=== PATIENT | male | born 1950 | race Caucasian/White ===

== ENCOUNTER 2019-03-21 17:27 | Inpatient (IN) | payer MEDICARE, OTHER ==
[~2019-03-21] VITALS: Ht 182.9 cm; Wt 66.4 kg
[2019-03-21] MEDS ORDERED: IV NORMAL SALINE 1,000ML 1,000 ML IV ONE (17:45)
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
--- NOTE | 2019-03-21 18:13 | RAD ---
AP chest. HISTORY: High white count AP view was taken of the chest. There is a bony destructive process in the right humerus with a pathologic fracture. Patient's taken a poor inspiration. There is atelectasis in both lung bases. Left PICC line is in good position. There is bowel distention in the abdomen. There is possible free air under the right diaphragm. IMPRESSION: 1. Bony destructive process with pathologic fracture right humerus. 2. Poor inspiration with basilar atelectasis. 3. Bowel distention. 4. Possible free air under the right diaphragm. Emergency room physician was called and notified the findings at 6:09 PM FOR INTERNAL CODING PURPOSES Critical result: RESULT CODE: (C) Electronically signed by: Sanjay Whitfield MD (03/21/2019 6:10 PM) [facility]
[2019-03-21] MEDS ORDERED: IV NORMAL SALINE 1,000ML 1,000 ML IV SCH (18:50)
--- NOTE | 2019-03-21 18:51 | RAD ---
CT abdomen and pelvis without contrast. HISTORY: Fever, sepsis, possible free air CT scan the abdomen pelvis was done without contrast. There is mild atelectasis or infiltrates in the lung bases. There is a polypoid density in the esophagus or retained food.. There is portal venous gas. There is gas in the portal vein. Spleen and adrenal glands are normal. Pancreas is normal. There is no adenopathy. There is a 1.3 cm high density lesion at the upper pole the right kidney either mass or complicated cyst. There are bilateral renal cysts. There is no hydronephrosis. There is a catheter in the bladder. The prostate is enlarged. There is extensive pneumatosis throughout the bowel including the stomach small bowel and colon. Small bowel is dilated possible bowel obstruction or ileus. Ischemic bowel can have this pattern or obstruction can give pneumatosis. There is not obvious calcification in the celiac or superior mesenteric arteries. There is free air in the upper abdomen above the liver. IMPRESSION: 1. Atelectasis or infiltrate in both lung bases. 2. Extensive the portal venous air. 3. Air in the bowel wall throughout the small bowel colon and stomach. 4. Dilated bowel from an ileus or bowel obstruction. 5. Pneumoperitoneum. 6. Polypoid lesion in the esophagus or retained food. 7. Complicated cyst or mass left kidney PQRS Compliance Statement: One or more of the following individualized dose reduction techniques were utilized for this examination: 1. Automated exposure control 2. Adjustment of the mA and/or kV according to patient size 3. Use of iterative reconstruction technique Electronically signed by: Sanjay Whitfield MD (03/21/2019 6:48 PM) [facility]
[2019-03-21] MEDS ORDERED: PIPERACILLIN/TAZOBACTAM 3.375 GM VIAL IV ONE (18:57)
[2019-03-21] MEDS ORDERED: IV NORMAL SALINE 100ML 100 ML ONE (18:58)
[2019-03-21] MEDS ORDERED: ONDANSETRON PF 4 MG/2 ML VIAL. IV PRN (19:00)
[2019-03-21] MEDS ORDERED: MORPHINE SULFATE 4 MG/ML DISP.SYRIN. IV PRN (19:00)
[2019-03-21] MEDS ORDERED: PIPERACILLIN/TAZOBACTAM 3.375 GM in IV NORMAL SALINE 50ML 50 ML IV ONE (19:15)
[2019-03-21] MEDS ORDERED: VANCOMYCIN 1 GM in IV NORMAL SALINE 250ML 250 ML IV ONE (19:30)
[2019-03-21] MEDS ORDERED: IV NORMAL SALINE 250ML 250 ML ONE (19:48)
[2019-03-21] MEDS ORDERED: VANCOMYCIN 1 GM VIAL. ONE (19:48)
--- NOTE | 2019-03-21 21:40 | NUR ---
ADMISSION: PT ARRIVED TO [facility] VIA GURNEY, ACCOMPANIED BY [facility] AND FAMILY. PT ADMITTED FOR INPATIENT HOSPICE DUE TO PERFORATED BOWEL AND SEPSIS. PT CURRENTLY ON NON-REBREATHER MASK AT 15L, SATS 80%. UNABLE TO OBTAIN BP. PT ALERT, TRACKING WITH EYES BUT UNABLE TO VERBALIZE. DISCUSSED POC WITH PT'S SISTER/DPOA, RAMIRO KULKARNI, AT BEDSIDE. AGREEABLE TO INITIATE HOSPICE CARE FOR PT. [facility], SPOKE WITH SHELTON IN ADMISSIONS. ALLY, [employer] REPRESENTATIVE IS EXPECTED TO ASSESS PT LATER THIS EVENING. PT SITTING UP IN BED, NODDING HE IS COMFORTABLE. MULTIPLE FAMILY MEMBERS AT THE BEDSIDE. BELONGINGS CHECKED AND LOGGED, GLASSES REMAIN AT BEDSIDE. CALL LIGHT IN REACH.
[2019-03-21] MEDS: MORPHINE SULFATE 4 MG/ML DISP.SYRIN. IV SCH ×2 (22:00→23:27)
[2019-03-21] MEDS ORDERED: SCOPOLAMINE 1.5MG PATCH. TD SCH (22:00)
[2019-03-21] MEDS ORDERED: MORPHINE SULFATE 2 MG/ML DISP.SYRIN. IV SCH (22:00)
--- NOTE | 2019-03-22 00:13 | NUR ---
2330: ALLY, DIRECTOR OF EPIDEMIOLOGY HERE TO SEE PATIENT. CHANGE NOTED IN PT, EYES NO LONGER TRACKING AND AGONAL BREATHING. ALL EXTREMITIES AND UPPER CHEST COOL AND MOTTLED. FAMILY AT BEDSIDE. 2334: PT ASSESSED BY THIS RN AND CONNIE PIERRE, WITH NO RESPONSE TO VERBAL OR TACTILE STIMULI; NO BREATH SOUNDS, RESPIRATORY CHEST MOVEMENT OR APICAL HEARTBEAT FOR FULL ONE MINUTE; NO GAG REFLEX, AND NO PUPILLARY RESPONSE TO LIGHT. PT PRONOUNCED AT 2335. 2340: DR. LANDIS NOTIFIED OF PT . PT FAMILY REMAINS AT BEDSIDE SAYING GOODBYES. PT'S SISTER RAMIRO WISHES FOR BODY TO BE RELEASED TO [facility].
--- NOTE | 2019-03-22 01:10 | NUR ---
FAMILY LEAVING FOR THE NIGHT AND WISH FOR HOME TO BE CONTACTED AT THIS TIME. LYLE CATHETER, PEG TUBE, AND PICC LINE ALL REMOVED. BODY CLEANSED. [facility] CALLED, AWAITING PICK-UP.
--- NOTE | 2019-03-22 02:55 | NUR ---
BODY RELEASED TO [facility]. ALL BELONGINGS WE SENT HOME WITH FAMILY.
--- NOTE | 2019-03-27 21:01 | DS ---
DATE OF DISCHARGE: 03/22/2019 HOSPITAL COURSE: The patient is a 68-year-old male patient who was just admitted to [facility] where the nursing staff contacted me regarding abnormal lab work and therefore, the patient was sent to the Emergency Room of [facility] where he was found to have marked leukocytosis and decreased urine output. Further evaluation showed that the patient has esophageal cancer with dysphagia and the patient was found to be extremely hypoxic, tachypneic, hypotensive, and in fact his heart rate was only 43. His oxygen saturation was only 80% on FiO2 15 liters on oxygen by nonrebreather mask. Further imaging studies including a chest x-ray showed that the patient has bony destructive process with pathologic fracture of the right humerus. He has also bowel distention and possible free air under the right diaphragm. His CT scan of the abdomen and pelvis showed that the patient has extensive portal venous air in the bowel wall throughout the small bowel, colon, and stomach. He has also dilated bowel from an ileus or bowel obstruction. 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 The patient was basically diagnosed with a perforated bowel and extensive pneumatosis coli throughout the bowel including stomach, small bowel and colon. Given his general condition, sepsis, and hypotension that he will not be able to withstand surgery for his bowel perforation. The patient was admitted for inpatient hospice care; however, he was seen by myself. He was seen by the Emergency Room physician and we made arrangements for him to be evaluated and admitted for inpatient hospice. He lasted only about [address] [facility] and the patient was found to be unresponsive to verbal or tactile stimuli. No spontaneous breath sounds. No audible heart sounds, gallop, or pulsation and was pronounced at around 23:40 and the patient was pronounced and the cause of is a cardiopulmonary arrest, acute respiratory failure, severe sepsis due to bowel perforation, and obviously he has metastatic esophageal cancer. JA LANDIS MD DR: JENNIFFER/bibi JOB#: [id number] / [id number]
== END 2019-03-22 02:55 | disposition expired | DRG 871 ==
LOC: ER 17:27 → 1 SOUTH 18:47
PROVIDERS: ADMIT Internal Medicine; ATTEND Internal Medicine
DX: A41.9 Sepsis, unspecified organism (principal); K63.1 Perforation of intestine (nontraumatic); J96.00 Acute respiratory failure, unspecified whether with hypoxia or hypercapnia; C15.9 Malignant neoplasm of esophagus, unspecified; J98.11 Atelectasis; K56.609 Unspecified intestinal obstruction, unspecified as to partial versus complete obstruction; K56.7 Ileus, unspecified; M84.421A Pathological fracture, right humerus, initial encounter for fracture; K66.8 Other specified disorders of peritoneum; N28.1 Cyst of kidney, acquired; N28.89 Other specified disorders of kidney and ureter; N40.0 Benign prostatic hyperplasia without lower urinary tract symptoms; I46.9 Cardiac arrest, cause unspecified; K22.8 Other specified diseases of esophagus; K63.89 Other specified diseases of intestine; R13.10 Dysphagia, unspecified; R65.20 Severe sepsis without septic shock; Z51.5 Encounter for palliative care
CPT/HCPCS: 71045; 74176; 96361; 96365; 96367; 96375; J2270; J2543; J3370; J7050; 99285-25; J7030